=== PATIENT | female | born 1995 | race Asian ===

== ENCOUNTER 2016-05-31 02:27 | Emergency (ER) | payer OTHER ==
[2016-05-31] MEDS ORDERED: Ondansetron INJ* 2 MG/ML VIAL IV ONE (03:00)
[2016-05-31] MEDS ORDERED: NS 0.9% 1000 ML* 1,000 ML IV ONE ×2 (03:00→09:01)
[2016-05-31 05:38] LABS: Hematocrit 39 % (35-47); Hemoglobin 13.3 g/dl (12.0-16.0); Mean Corpuscular HGB Conc 35 g/dl (31-36); Mean Corpuscular Hemoglobin 32 pg (27-31); Mean Corpuscular Volume 94 fL (80-97); Mean Platelet Volume 9 um3 (7.4-10.4); Red Blood Count 4.11 10^6/ul (4.0-5.4); Red Cell Distribution Width 12 % (10.5-15); White Blood Count 6.1 10^3/ul (3.5-10.8)
[2016-05-31 05:49] LABS: Calcium 8.8 mg/dL (8.6-10.3); EGFR African American 163.9 (>60); EGFR Non-African American 127.5 (>60); Potassium 3.8 mmol/L (3.5-5.0)
--- NOTE | 2016-05-31 13:24 | ED ---
Jessa Cui Matthew, scribed for Rigo Mcdowell MD on 05/31/16 at 1322 . Progress - Progress Note Progress Note: The patient is a sign out from Dr. Vasques for alcohol intoxication. The patient is currently A&Ox3. Vital signs: reviewed General: Patient is comfortable lying in stretcher with no signs of distress HEENT: within normal limits Lungs: CTA B/L CVS: S1 & S2 present. No murmurs appreciated. ABDOMEN: Soft, non-tender. No signs of distention. No rebound no guarding, and no masses palpated. Bowel sounds are normal. EXTREMITIES: FROM in all major joints, no edema, no cyanosis or clubbing. NEURO: Alert and oriented x 3. No acute neurological deficits. Speech is normal and follows commands. SKIN: Dry and warm Course/Dx - Course Course Of Treatment: At approximately 12:15 the patient was A&Ox3. She is eating and drinking normally. She has normal cognition. The repeat alcohol is 68. She is asymptomatic therefore she will be discharged home with follow-up from PCP. I discussed all the findings and test results with the patient. Patient was instructed to return to the emergency room immediately if any of the symptoms return or worsens. Plan of care was discussed with the patient and understands and agrees. All questions were answered at patient satisfaction. There were no further complaints or concerns. Lung exam before discharge: CTA B /L. Good air exchange. No wheezing or crackles heard. CVS: S1 and S2 present. No murmurs appreciated. Patient is alert and oriented x 3. Patient is hemodynamically stable. Patient will be discharged home with follow up PCP in the next 2-3 days - Diagnoses Provider Diagnoses: Alcohol intoxication The documentation as recorded by the Jessa bee Matthew accurately reflects the service I personally performed and the decisions made by , Rigo Mcdowell MD.
[2016-05-31 13:25] VITALS: BP 106/68
--- NOTE | 2016-05-31 21:02 | ED ---
Aaron Cui Billy, scribed for Etienne Vasques MD on 05/31/16 at 0508 . Substance Abuse/Use - HPI Summary HPI Summary: Patient is a 20 year-old female BIBA to [facility] for evaluation of EtOH intoxication. The patient is unable to provide a full history at this time due to her level of intoxication, but she does admit to drinking sangria today. She denies any pain or injury at this time. - History Of Current Complaint Chief Complaint: EDSubstanceAbuse Stated Complaint: AMS/ETOH Time Seen by Provider: 05/31/16 03:14 Hx From Patient Unobtainable Due To: Other - Level 5 caveat Ingestion History: Type/Name Of Drug - EtOH Timing Of Abuse: Binge Use Severity Initially: Moderate Character: Stuporous - Allergies/Home Medications Allergies/Adverse Reactions: Allergies Allergy/AdvReac Type Severity Reaction Status Date / Time No Known Allergies Allergy Verified 05/31/16 02:52 PMH/Surg Hx/FS Hx/Imm Hx Infectious Disease History: Unable to Obtain/Confirm Infectious Disease History: Denies: Traveled Outside the [place] in Last 30 Days - Family History Known Family History: Positive: Unknown - Level 5 caveat. - Social History Alcohol Use: Occasionally Alcohol Amount: Pt is ETOH Unresponsive Substance Use Type: Reports: None Substance Use Comment - Amount & Last Used: UNKNOWN Smoking Status (MU): Unknown if Ever Smoked Review of Systems Neurological: Other - EtOH intoxication All Other Systems Reviewed And Are Negative: No - Comments Additional Review of Systems Comments: Not able to obtain a full ROS secondary to EtOH intoxication, but the patient denies any pain. Physical Exam - Summary Physical Exam Summary: Constitutional: Well-developed, Well-nourished. She is drowsy but rousable. (-) Distressed Skin: Warm, Dry HENT: Normocephalic; Atraumatic Eyes: Conjunctiva normal Neck: Musculoskeletal ROM normal neck. (-) JVD, (-) Stridor, (-) Tracheal deviation Cardio: Rhythm regular, rate normal, Heart sounds normal; Intact distal pulses; The pedal pulses are 2+ and symmetric. Radial pulses are 2+ and symmetric. (-) Murmur Pulmonary/Chest wall: Effort normal. (-) Respiratory distress, (-) Wheezes, (-) Rales Abd: Soft, (-) Tenderness, (-) Distension, (-) Guarding, (-) Rebound Musculoskeletal: (-) Edema Lymph: (-) Cervical adenopathy Neuro: Drowsy but rousable. Psych: Drowsy but rousable. Triage Information Reviewed: Yes Vital Signs On Initial Exam: Initial Vitals Temp Pulse Resp BP Pulse Ox 99.2 F 91 16 111/72 100 05/31/16 02:37 05/31/16 02:37 05/31/16 02:37 05/31/16 02:37 05/31/16 02:37 Vital Signs Reviewed: Yes Diagnostics - Vital Signs Vital Signs Temp Pulse Resp BP Pulse Ox 05/31/16 02:47 99.2 F 91 16 111/72 100 05/31/16 02:37 99.2 F 91 16 111/72 100 - Laboratory Result Diagrams: 05/31/16 04:15 05/31/16 04:15 Lab Statement: Any lab studies that have been ordered have been reviewed, and results considered in the medical decision making process. Course/Dx - Course Assessment/Plan: 20 year-old female coming to the ED with EtOH intoxication. BA is 246. Signed out pending sobriety. - Diagnoses Provider Diagnoses: Alcohol intoxication Discharge - Discharge Plan Condition: Stable Disposition: OTHER Discharge Disposition Comment: Signed out pending sobriety. The documentation as recorded by the Aaron bee Billy accurately reflects the service I personally performed and the decisions made by me, Etienne Vasques MD.
== END 2016-05-31 13:24 | disposition home or self-care (01) ==
LOC: ED 02:27
DX: F10.129 Alcohol abuse with intoxication, unspecified (principal)
CPT/HCPCS: 36415; 80048; 80320; 85027; 96365; 99283; G0480; J2405